=== PATIENT | male | born 1935 | race Caucasian/White ===

== ENCOUNTER 2016-06-11 14:05 | Inpatient (IN) | payer MEDICARE, BC ==
[~2016-06-11] VITALS: Ht 152.4 cm; Wt 97.5 kg
[2016-06-11] VITALS (9 sets, daily range): BP systolic 101–160; BP diastolic 61–103
[2016-06-11] MEDS ORDERED: IV NS 0.9% 1,000 ML BAG IV ONE (14:30)
[2016-06-11] MEDS ORDERED: DILTIAZEM HCL 25 MG IV IV ONE (14:30)
[2016-06-11] MEDS ORDERED: BUME2TAB3 PO (14:31)
[2016-06-11] MEDS ORDERED: TAMS-12 PO (14:31)
[2016-06-11] MEDS ORDERED: FURO40TA5 PO (14:31)
[2016-06-11] MEDS ORDERED: CELE200C PO (14:31)
[2016-06-11] MEDS ORDERED: LEVO137T2 PO (14:31)
[2016-06-11] MEDS ORDERED: FINA5TAB11 PO (14:31)
[2016-06-11] MEDS ORDERED: IV SET PRIMARY 1 EA INFUS.SET MC ONE (14:32)
[2016-06-11] MEDS ORDERED: IV NS 0.9% 250 ML IV ONE (14:32)
[2016-06-11] MEDS ORDERED: DILTIAZEM HCL 25 MG IV ONE (14:32)
[2016-06-11 14:36] LABS: BASOPHILS % (AUTO) 0.2 % (0.0-2.0); DIFF TOTAL % 100 %; EOSINOPHILS # (AUTO) 0.1 /CMM (0.0-0.7); EOSINOPHILS % (AUTO) 1.8 % (0.0-6.0); HEMATOCRIT 45 % (39-51); LYMPHOCYTES # (AUTO) 1.4 /CMM (0.8-4.8); LYMPHOCYTES % (AUTO) 19.3 % (20.0-44.0); MEAN CORPUSCULAR HEMOGLOBIN 31 PG (26.0-33.0); MEAN CORPUSCULAR HGB CONC 33 g/dl (31.0-36.0); MEAN CORPUSCULAR VOLUME 93 fL (80-96); MONOCYTES # (AUTO) 0.5 /CMM (0.1-1.30); MONOCYTES % (AUTO) 7.1 % (2.0-12.0); NEUTROPHILS # (AUTO) 5.3 /CMM (1.8-8.9); NEUTROPHILS % (AUTO) 71.6 % (43.0-81.0); PLATELET COUNT (AUTO) 301 /CMM (150-450); RED BLOOD CELL COUNT(AUTO) 4.89 MIL/uL (4.5-6.0); WHITE BLOOD COUNT (AUTO) 7.3 K/uL (4.3-11.0)
[2016-06-11] MEDS ORDERED: DILTIAZEM HCL 30 MG TABLET ONE (14:42)
[2016-06-11 14:47] LABS: ANION GAP 13 (5-14); CALCIUM, SERUM 8.9 mg/dL (8.5-10.1); CARBON DIOXIDE 29 mmol/L (21-32); CHLORIDE 106 mmol/L (98-107); CREATININE 1.2 mg/dL (0.6-1.3); GLUCOSE 120 mg/dL (74-106); POTASSIUM 4.9 mmol/L (3.5-5.1); SODIUM SERUM 143 mmol/L (136-145); UREA NITROGEN, BLOOD 16 mg/dL (7-18)
[2016-06-11 14:49] LABS: PROTHROMBIN TIME 10.5 SECS (9.5-12.7)
[2016-06-11 14:58] LABS: ALANINE AMINOTRANSFERASE 18 U/L (12-78); ALBUMIN 3.4 g/dL (3.4-5.0); ASPARTATE AMINOTRANSFERASE 19 U/L (15-37); BILIRUBIN,DIRECT 0.2 mg/dL (0.0-0.2); BILIRUBIN,TOTAL 0.9 mg/dL (0.2-1.0); INDIRECT BILIRUBIN 0.7 mg/dL (0.0-1.1); TOTAL PROTEIN, SERUM 8.1 g/dL (6.4-8.2)
[2016-06-11 14:59] LABS: TROPONIN I < 0.017 ng/mL (0.00-0.056)
[2016-06-11] MEDS ORDERED: DILTIAZEM HCL IV 125 MG in IV D5W 100 ML IV PRN (15:30)
[2016-06-11] MEDS ORDERED: IV SET PRIMARY PUMP SET 1 EA INFUS.SET MC ONE (15:58)
[2016-06-11] MEDS ORDERED: DILTIAZEM HCL 30 MG TABLET PO ONE (16:30)
[2016-06-11] MEDS ORDERED: ACETAMINOPHEN 650 MG/SUPP.RECT RC PRN (18:30)
[2016-06-11] MEDS ORDERED: ZOLPIDEM TARTRATE 5 MG TABLET PO PRN (19:00)
[2016-06-11] MEDS ORDERED: LORAZEPAM 1 MG TABLET PO PRN (19:00)
[2016-06-11] MEDS ORDERED: DOCUSATE SODIUM 100 MG CAPSULE PO PRN (19:00)
[2016-06-11] MEDS ORDERED: MORPHINE SULFATE INJ 2 MG/ML DISP.SYRIN IV PRN ×2 (19:00)
[2016-06-11] MEDS ORDERED: ONDANSETRON HCL/PF 4 MG/2 ML VIAL IVP PRN (19:00)
[2016-06-11] MEDS ORDERED: ACETAMINOPHEN 325 MG TABLET PO PRN (19:00)
[2016-06-11] MEDS ORDERED: NITROGLYCERIN 0.4 MG/TAB BOTTLE SL PRN (19:00)
[2016-06-11] MEDS: IV NS 0.9% 1,000 ML IV PRN (19:08)
[2016-06-11] MEDS: AMIODARONE HCL 200 MG TABLET PO SCH (19:12)
[2016-06-11] MEDS: ENOXAPARIN SODIUM 100 MG/ML DISP.SYRIN SQ SCH (21:00)
[2016-06-11] MEDS ORDERED: METOPROLOL TARTRATE 25 MG TABLET PO SCH (21:00)
[2016-06-11] MEDS ORDERED: SIMVASTATIN 20 MG TABLET PO SCH (22:00)
[2016-06-12] VITALS: BP 130/67
[2016-06-12 01:00] VITALS: BP 126/63
[2016-06-12 04:50] VITALS: BP 133/65
[2016-06-12 05:06] LABS: BASOPHILS % (AUTO) 0.2 % (0.0-2.0); DIFF TOTAL % 100 %; EOSINOPHILS # (AUTO) 0.2 /CMM (0.0-0.7); EOSINOPHILS % (AUTO) 2.8 % (0.0-6.0); HEMATOCRIT 37 % (39-51); HEMOGLOBIN 12.5 g/dL (13.5-17.5); LYMPHOCYTES # (AUTO) 1.3 /CMM (0.8-4.8); LYMPHOCYTES % (AUTO) 16.6 % (20.0-44.0); MEAN CORPUSCULAR HEMOGLOBIN 31 PG (26.0-33.0); MEAN CORPUSCULAR HGB CONC 33 g/dl (31.0-36.0); MEAN CORPUSCULAR VOLUME 93 fL (80-96); MONOCYTES # (AUTO) 0.8 /CMM (0.1-1.30); MONOCYTES % (AUTO) 10.9 % (2.0-12.0); NEUTROPHILS # (AUTO) 5.4 /CMM (1.8-8.9); NEUTROPHILS % (AUTO) 69.5 % (43.0-81.0); PLATELET COUNT (AUTO) 273 /CMM (150-450); RED BLOOD CELL COUNT(AUTO) 4.01 MIL/uL (4.5-6.0); WHITE BLOOD COUNT (AUTO) 7.7 K/uL (4.3-11.0)
[2016-06-12 05:22] LABS: AMYLASE 66 U/L (25-115); CALCIUM, SERUM 8.3 mg/dL (8.5-10.1); CREATININE 0.9 mg/dL (0.6-1.3); PHOSPHORUS 3.3 mg/dL (2.5-4.9); POTASSIUM 3.6 mmol/L (3.5-5.1)
[2016-06-12 05:25] LABS: INR 1.02 (0.87-1.13)
[2016-06-12 05:27] LABS: CHOLESTEROL 147 mg/dL (<200); HDL CHOLESTEROL 53 mg/dL (40-60); LDL 76 mg/dL (0-99); TRIGLYCERIDES 70 mg/dL (30-150)
[2016-06-12] MEDS: IV NS 0.9% 1,000 ML IV PRN (06:01)
[2016-06-12] MEDS ORDERED: PANTOPRAZOLE 40 MG TABLET.DR PO SCH (07:30)
[2016-06-12] MEDS ORDERED: LEVOTHYROXINE SODIUM 150 MCG TABLET PO SCH (07:30)
[2016-06-12 08:24] VITALS: BP 159/72
[2016-06-12] MEDS ORDERED: FUROSEMIDE 40 MG TABLET PO SCH (09:00)
[2016-06-12] MEDS ORDERED: ASPIRIN 81 MG TAB.CHEW PO SCH (09:00)
[2016-06-12] MEDS ORDERED: TAMSULOSIN 0.4 MG CAP.SR.24H PO SCH (09:00)
[2016-06-12] MEDS ORDERED: FINASTERIDE (5 MG) 5 MG TABLET PO SCH (09:00)
[2016-06-12] MEDS: ENOXAPARIN SODIUM 100 MG/ML DISP.SYRIN SQ SCH (09:00)
[2016-06-12 09:53] VITALS: BP 159/62
[2016-06-12] MEDS ORDERED: LEVOTHYROXINE SODIUM 75 MCG TABLET PO SCH (09:53)
[2016-06-12] MEDS: AMIODARONE HCL 200 MG TABLET PO SCH (09:53)
[2016-06-12 10:03] LABS: TROPONIN I 0.126 ng/mL (0.00-0.056)
== END 2016-06-12 12:30 | disposition left against medical advice (07) | DRG 308 ==
LOC: ER 14:07 → ICU 16:49
PROVIDERS: ADMIT Internal Medicine; ATTEND Internal Medicine
DX: I49.5 Sick sinus syndrome (principal); I50.23 Acute on chronic systolic (congestive) heart failure; D68.59 Other primary thrombophilia; I48.0 Paroxysmal atrial fibrillation; R55 Syncope and collapse; E03.9 Hypothyroidism, unspecified; E78.5 Hyperlipidemia, unspecified; E86.0 Dehydration; I11.0 Hypertensive heart disease with heart failure; Z96.642 Presence of left artificial hip joint; Z87.891 Personal history of nicotine dependence; Z91.19 Patient's noncompliance with other medical treatment and regimen
CPT/HCPCS: 36415; 71010-TC; 80048-TC; 80061-TC; 80076-TC; 82150-TC; 83690-TC; 83735-TC; 83880; 84100-TC; 84439-TC; 84443-TC; 84484-TC; 85025-TC; 85610-TC; 85730-TC; 87081-TC; 93307-TC; A4606; J3490; J7030; J7050; J7060; Z7610

== ENCOUNTER 2021-07-17 12:39 | Inpatient (IN) | payer BC, OTHER ==
[~2021-07-17] VITALS: Ht 177.8 cm; Wt 71.2 kg
[~2021-07-17 12:39] MED LIST: BUME2TAB7 PO; CELE200C PO; FINA5TAB11 PO; FURO40TA5 PO; LEVO137T2 PO; TAMS-12 PO
--- NOTE | 2021-07-17 12:48 | NUR ---
TO ER BED 8, [id number] FRM 4 SEASONS FOR NOTED HYPOTENSION, SYSTOLIC B/P 70'S GIVEN APPROX 300CC NS SOLE ROUNDING MACHINE OPERATOR. AAOX2, BREATHING EVEN AND NON LABORED, CONNECTED TO MONITOR, PROVIDED WARM BLANKET, AWAITING MD KANG
[2021-07-17] MEDS ORDERED: IV LR 1000 ML 1,000 ML IV ONE (13:00)
--- NOTE | 2021-07-17 13:20 | NUR ---
X RAY AT BEDSIDE
--- NOTE | 2021-07-17 13:39 | NUR ---
COVID TEST COLLECTED AND SENT
--- NOTE | 2021-07-17 13:40 | NUR ---
URINE COLLECTED AND SENT TO LAB
--- NOTE | 2021-07-17 13:45 | NUR ---
COVID SWABS DONE AND SENT TO LAB
[2021-07-17 14:00] LABS: BASOPHILS % (AUTO) 0.3 % (0.0-2.0); EOSINOPHILS % (AUTO) 0.5 % (0.0-6.0); HEMATOCRIT 36 % (39-51); HEMOGLOBIN 11.3 g/dL (13.5-17.5); LYMPHOCYTES # (AUTO) 1.8 K/uL (0.8-4.8); LYMPHOCYTES % (AUTO) 18.4 % (20.0-44.0); MEAN CORPUSCULAR HGB CONC 32 g/dl (31.0-36.0); MEAN CORPUSCULAR VOLUME 92 fL (80-96); MONOCYTES # (AUTO) 0.9 K/uL (0.1-1.30); MONOCYTES % (AUTO) 8.7 % (2.0-12.0); NEUTROPHILS # (AUTO) 7.2 K/uL (1.8-8.9); NEUTROPHILS % (AUTO) 72.1 % (43.0-81.0); PLATELET COUNT (AUTO) 288 K/uL (150-450); RED BLOOD CELL COUNT(AUTO) 3.88 MIL/uL (4.5-6.0)
--- NOTE | 2021-07-17 14:30 | NUR ---
URINE RECOLLECTED AND RESENT.
[2021-07-17 14:44] LABS: CALCIUM, SERUM 8.3 mg/dL (8.5-10.1); CARBON DIOXIDE 28 mmol/L (21-32); CHLORIDE 104 mmol/L (98-107); CREATININE 2.1 mg/dL (0.6-1.3); GLUCOSE 107 mg/dL (74-106); POTASSIUM 4.4 mmol/L (3.5-5.1); SODIUM SERUM 138 mmol/L (136-145); UREA NITROGEN, BLOOD 31 mg/dL (7-18)
--- NOTE | 2021-07-17 14:54 | NUR ---
MOVE SHEET SUBMITTED.
[2021-07-17 15:32] LABS: BILIRUBIN,DIRECT 0.4 mg/dL (0.0-0.2); BILIRUBIN,TOTAL 0.9 mg/dL (0.2-1.0)
[2021-07-17 15:33] LABS: BILIRUBIN,URINE MODERATE (NEGATIVE); COLOR,URINE YELLOW (YELLOW); LEUKOCYTE ESTERASE ,URINE MODERATE (NEGATIVE); NITRITE, URINE NEGATIVE (NEGATIVE); PH,URINE 7.5 (5.0-8.0); PROTEIN,URINE 100 mg/dl (NEGATIVE); UGLUCOSE NEGATIVE (NEGATIVE)
[2021-07-17 15:33] LABS: ALANINE AMINOTRANSFERASE 24 U/L (12-78); ALBUMIN 1.7 g/dL (3.4-5.0); ALKALINE PHOSPHATASE 136 U/L (46-116); ASPARTATE AMINOTRANSFERASE 36 U/L (15-37); TOTAL PROTEIN, SERUM 7.2 g/dL (6.4-8.2)
--- NOTE | 2021-07-17 15:40 | NUR ---
[facility] CALLED GROUP RESERVATIONS COORDINATOR PAGED.
[2021-07-17 15:48] LABS: WBC,URINE TOO NUMEROUS TO COUN /HPF (0-3)
[2021-07-17 15:49] LABS: BACTERIA,URINE Moderate /HPF (None Seen); SQUAMOUS EPITHELIAL CELL,UR Rare /HPF (None Seen)
[2021-07-17] MEDS ORDERED: CEFTAZIDIME 1 G in IV D5W 50 ML IV ONE (16:00)
[2021-07-17] MEDS ORDERED: ACETAMINOPHEN 325 MG TABLET PO PRN (17:00)
[2021-07-17] MEDS ORDERED: Z GUARD REMEDY 4 OZ OINT TP PRN (17:00)
[2021-07-17] MEDS ORDERED: IV NS 0.9% 1,000 ML IV PRN (17:00)
[2021-07-17] MEDS ORDERED: ONDANSETRON HCL/PF 4 MG/2 ML VIAL IVP PRN (17:00)
[2021-07-17] MEDS ORDERED: ZINC50TA69 PO (18:01)
[2021-07-17] MEDS ORDERED: AMIO200T5 PO (18:01)
[2021-07-17] MEDS ORDERED: SENN-261 PO (18:01)
[2021-07-17] MEDS ORDERED: INSU100V11 SQ (18:01)
[2021-07-17] MEDS ORDERED: HYDR-4076 PO (18:01)
[2021-07-17] MEDS ORDERED: HYDR-4209 PO (18:01)
[2021-07-17] MEDS ORDERED: LEVO125T8 PO (18:01)
[2021-07-17] MEDS ORDERED: AMIN30LI2 PO (18:01)
[2021-07-17] MEDS ORDERED: ESCI5TAB PO (18:01)
[2021-07-17] MEDS ORDERED: MULT-447 PO (18:01)
[2021-07-17] MEDS ORDERED: VITA1TAB56 PO (18:01)
[2021-07-17] MEDS ORDERED: HEPA50007 SQ (18:01)
[2021-07-17] MEDS ORDERED: HYDR-4303 PO (18:01)
[2021-07-17] MEDS ORDERED: MAGN400O6 PO (18:01)
[2021-07-17] MEDS ORDERED: ASCO-340 PO (18:01)
[2021-07-17] MEDS ORDERED: AMLO-212 PO (18:01)
[2021-07-17] MEDS ORDERED: LISI-768 PO (18:01)
[2021-07-17] MEDS ORDERED: BISA10SU11 RC (18:01)
[2021-07-17] MEDS ORDERED: LORA-259 PO (18:01)
[2021-07-17] MEDS ORDERED: FERR325T23 PO (18:01)
[2021-07-17] MEDS ORDERED: SITA50TA PO (18:01)
[2021-07-17] MEDS ORDERED: GABA-532 PO (18:01)
[2021-07-17] MEDS ORDERED: ACET-868 PO (18:01)
[2021-07-17] MEDS ORDERED: NA P133E RC (18:01)
[2021-07-17] MEDS ORDERED: LIDO30AD10 TP (18:01)
[2021-07-17] MEDS ORDERED: CARV3.122 PO (18:01)
[2021-07-17] MEDS: CEFTRIAXONE 1 G in IV D5W 50 ML IV SCH (18:03)
[2021-07-17] MEDS: AZITHROMYCIN 500 MG in IV D5W 250 ML IV SCH (20:43)
[2021-07-17] MEDS ORDERED: HEPARIN SODIUM, PORCINE 5000 UNITS/1 ML VIAL ONE (21:09)
[2021-07-17] MEDS: HEPARIN SODIUM, PORCINE 5000 UNITS/1 ML VIAL SQ SCH (21:11)
--- NOTE | 2021-07-17 22:06 | NUR ---
ROOM 313-2
--- NOTE | 2021-07-17 23:16 | NUR ---
REPORT GIVEN TO ENZO PRAJAPATI
--- NOTE | 2021-07-18 00:24 | NUR ---
PT TRANSFERRED TO 113-2 VIA ACLS PROTOCOL. VSS
[2021-07-18 00:35] VITALS: BP 100/60
--- NOTE | 2021-07-18 00:35 | NUR ---
FURNACE ATTENDANT NOTES PT ARRIVED TI UNIT VIA ROBYNRDARIELA ACCOMPANIED BY RN AND EMT PT IS A 86 YEAR OLD MALE A/O X3. T IN NO NOTED RESPIRATORY DISTRESS ON ROOM AIR TOLERATING WELL.NO PAIN AT THIS TIME. PT UNABLE TO AMBULATE NOTED WITH BILATERAL LOWER EXTREMITY WOUNDS PICTURES TAKEN AND PLACED IN CHART PT NOTED WITH NO BELONGINGS WITH HIM. PT NOTE WITH IV ACCESS ON THE L WRIST 22G AND RIGHT HAND 20 G PATENT INTACT FLUSHING WELL. PT ON NS @ 75 ML/HR RUNNING WELL. PT PLACED ON TELE MONITOR READING ST 100'S. PT ORIENTED TO ROOM AND UNIT. CALL LIGHT PLACED WITHIN REACH. CLARIFIED WITH DR SALAZAR PT TO REMAIN FULL CODE AT THIS TIME. WILL CONTINUE TO MONITOR.
[2021-07-18 00:45] VITALS: BP 100/60
[2021-07-18 04:00] VITALS: BP 69/41
--- NOTE | 2021-07-18 05:06 | NUR ---
TRAVELING CLERK NOTES NOTED PT SBP WAS 41/37 CALLED THE ACCOUNT RECEIVABLE CLERK DR PT IS ALERT X4 NO DISTRESS NOTED AT THIS TIME.
--- NOTE | 2021-07-18 05:20 | NUR ---
FURNITURE UPHOLSTERER NOTES UNABLE TO GET IN CONTACT WITH EASEMENT MAN DOCTOR CHARGE NURSE CALLED A RAPID RESPONSE. ER NURSE ARRIVED TO SCENE WITH EMT RT' S PRESENT CHARGE NURSE, NURSING COMMERCIAL LIGHT FIXTURE ASSEMBLER PRESENT. PT ALL OTHER VITAL SIGNS WITHIN NORMAL LIMITS EXCEPT SBP 41/37 THE BOLUS WAS GIVEN PTS SBP STARTED RISING 62/57 REASSESSED BP NOW ITS 72/57 REASSESSED AGAIN PT SBP STARTED TRENDING DOWN AGAIN 52/76. WILL PAGE MD AGAIN.
[2021-07-18 05:47] VITALS: BP 47/57
[2021-07-18] MEDS ORDERED: IV NS 0.9% 1,000 ML IV ONE (06:00)
[2021-07-18] MEDS ORDERED: MIDODRINE HCL (5MG) 5 MG TABLET PO PRN (06:00)
--- NOTE | 2021-07-18 06:48 | NUR ---
TELEL RN NOTES MD CALLED BACK RECEIVED ORDERS FOR MIDODRINE 10 MG Q8HR PRN FOR SBP< 90, 1L OF NS BOLUS, THEN START PT IV FLUIDS AT @ 100 ML/HR ORDERS NOTED AND CARRIED OUT. WILL ADMINISTER NOW. REITERATED TO PT STATED AND WITNESSED BY TWO RNS HE WOULD LIKE TO BE DNR AWARE NO NEW ORDERS AT THIA TIME.
--- NOTE | 2021-07-18 07:20 | NUR ---
MAINTENANCE OF WAY SUPERVISOR NOTES PT A/O X3. ON ROOM AIR TOLERATING WELL, WITH NO SIGNS OF DISTRESS. NO PAIN AT THIS TIME. PT NOTE WITH IV ACCESS ON THE L WRIST 22G AND RIGHT HAND 20 G PATENT INTACT FLUSHING WELL. PT ON NS @ 75 ML/HR RUNNING WELL. PT PLACED ON TELE MONITOR READING ST 100'S. CALL LIGHT PLACED WITHIN REACH. WITH ONGOING BOLUS ORDERED. WILL CONTINUE TO MONITOR PATIENT.
[2021-07-18] MEDS ORDERED: LEVOTHYROXINE SODIUM 137 MCG TABLET PO SCH (07:30)
[2021-07-18 08:00] VITALS: BP 61/41
[2021-07-18 08:19] LABS: BILIRUBIN,TOTAL 0.4 mg/dL (0.2-1.0); CALCIUM, SERUM 7.2 mg/dL (8.5-10.1); CREATININE 1.3 mg/dL (0.6-1.3); MAGNESIUM 1.7 mg/dL (1.8-2.4); PHOSPHORUS 3.9 mg/dL (2.5-4.9); POTASSIUM 4.1 mmol/L (3.5-5.1); TOTAL PROTEIN, SERUM 5.8 g/dL (6.4-8.2)
[2021-07-18 08:27] LABS: THYROID STIMULATING HORMONE 72.42 uIU/mL (0.358-3.74)
--- NOTE | 2021-07-18 08:30 | NUR ---
TOP INVENTORY CONTROL EXECUTIVE NOTE PATIENT IV ACCESS INFILTRATED. REMOVED AND COVERED WITH DRY DRESSING. DRY AND INTACT. TOLERATED WELL.
[2021-07-18 09:11] LABS: ALBUMIN 1.2 g/dL (3.4-5.0)
[2021-07-18] MEDS: FAMOTIDINE (20 MG) 20 MG TABLET PO SCH (09:29)
[2021-07-18] MEDS: FINASTERIDE (5 MG) 5 MG TABLET PO SCH (09:29)
[2021-07-18] MEDS: TAMSULOSIN 0.4 MG CAP.SR.24H PO SCH (09:29)
--- NOTE | 2021-07-18 09:30 | NUR ---
RN NOTE PATIENT WITH ALBUMIN LEVEL OF 1.2 RELAYED BY LAB. SEEN BY ABBY ALAS. WILL CONTINUE TO MONITOR PATIENT. Addendum: 07/18/21 at 1832 by MARTI TONEY RN UPDATED OF PATIENT'S LATEST CONDITION. TO INFUSE 500ML MORE OF FLUID. IV INFILTRATED. WILL ORDER MIDLINE INSERTION BECAUSE OF UNSUCCESSFUL ATTEMPTS ON IV INSERTION. WILL CONTINUE TO MONITOR PATIENT.
[2021-07-18 09:47] LABS: BASOPHILS % (AUTO) 0.4 % (0.0-2.0); EOSINOPHILS % (AUTO) 0.7 % (0.0-6.0); HEMATOCRIT 30 % (39-51); HEMOGLOBIN 9.7 g/dL (13.5-17.5); LYMPHOCYTES # (AUTO) 1.8 K/uL (0.8-4.8); LYMPHOCYTES % (AUTO) 21.9 % (20.0-44.0); MEAN CORPUSCULAR HGB CONC 33 g/dl (31.0-36.0); MEAN CORPUSCULAR VOLUME 91 fL (80-96); MONOCYTES # (AUTO) 0.7 K/uL (0.1-1.30); MONOCYTES % (AUTO) 8.1 % (2.0-12.0); NEUTROPHILS # (AUTO) 5.7 K/uL (1.8-8.9); NEUTROPHILS % (AUTO) 68.9 % (43.0-81.0); PLATELET COUNT (AUTO) 269 K/uL (150-450); RED BLOOD CELL COUNT(AUTO) 3.29 MIL/uL (4.5-6.0); WHITE BLOOD COUNT (AUTO) 8.3 K/uL (4.3-11.0)
[2021-07-18] MEDS: HEPARIN SODIUM, PORCINE 5000 UNITS/1 ML VIAL SQ SCH ×2 (09:47→21:28)
--- NOTE | 2021-07-18 14:00 | NUR ---
LAWN MOWER MECHANIC NOTE PATIENT MIDLINE INSERTED AND REGULATED FLUIDS. WILL CONTINUE TO [place] PATIENT. NO SIGNS AND SYMOPTOMS OF HYPOTENSION NOTED.
--- NOTE | 2021-07-18 17:39 | NUR ---
RN NOTE PATIENT WITH ADVANCE DIRECTIVE/POLST ATTACHED TO CHART. MD NOTIFIED WITH ORDERS MADE AND VERIFIED.
[2021-07-18] MEDS: DAKINS QUARTER STRENGTH (0.125%) 480 ML BOTTLE TOP SCH (17:42)
[2021-07-18] MEDS: CEFTRIAXONE 1 G in IV D5W 50 ML IV SCH (17:45)
[2021-07-18] MEDS: IV NS 0.9% 1,000 ML IV PRN (18:21)
--- NOTE | 2021-07-18 19:10 | NUR ---
MS RN NOTES PT A/O X3. ON ROOM AIR TOLERATING WELL, WITH NO SIGNS OF DISTRESS. NO PAIN AT THIS TIME. PT NOTE WITH MIDLINE ON RIGHT UPPER ARM, FLUSHING WELL. PT ON NS @ 100 ML/HR RUNNING WELL. CALL LIGHT PLACED WITHIN REACH. WITH ONGOING BOLUS ORDERED. WILL ENDORSE PATIENT FOR CONTINUITY OF CARE.
--- NOTE | 2021-07-18 19:26 | NUR ---
MS RN OPENING NOTES RECEIVED PATIENT IN BED AWAKE, ALERT AND ORIENTED X3. NO S/SX OF ACUTE RESPIRATORY DISTRESS NOTED. NO SOB NOTED. ON ROOM AIR TOLERATING WELL. DENIES PAIN OR DISCOMFORT AT THIS TIME. IV ACCESS ON RIGHT UPPER ARM MIDLINE, PATENT AND INTACT. NS @ 100ML/HR RUNNING WELL. ON MCLAUGHLIN CATHETER DRAINING WELL WITH JOSUE YELLOW URINE. SAFETY MEASURES IN PLACE. CALL LIGHT WITHIN REACH. WILL CONTINUE TO MONITOR THROUGHOUT THE SHIFT.
[2021-07-18 20:00] VITALS: BP 109/57
[2021-07-18] MEDS: AZITHROMYCIN 500 MG in IV D5W 250 ML IV SCH (20:08)
[2021-07-18] MEDS: MUPIROCIN OINT 2% 22 GM TUBE NS SCH (21:22)
--- NOTE | 2021-07-19 06:27 | NUR ---
MS RN CLOSING NOTES PATIENT IN BED AWAKE, ALERT AND ORIENTED X3. NO S/SX OF ACUTE RESPIRATORY DISTRESS NOTED. NO SOB NOTED. ON ROOM AIR TOLERATING WELL. DENIES PAIN OR DISCOMFORT AT THIS TIME. IV ACCESS ON RIGHT UPPER ARM MIDLINE, PATENT AND INTACT. NS @ 100ML/HR INFUSING WELL. ON MCL[place]GHLIN CATHETER DRAINING WELL WITH JOSUE YELLOW URINE. TURNED AND REPOSITIONED Q2H PER PROTOCOL. SAFETY MEASURES IN PLACE. CALL LIGHT WITHIN REACH. WILL ENDORSE TO ONCOMING SHIFT.
[2021-07-19] MEDS: LEVOTHYROXINE SODIUM 75 MCG TABLET PO SCH (07:30)
--- NOTE | 2021-07-19 07:30 | NUR ---
MS RN OPENING NOTES RECEIVED PATIENT ON BED AWAKE AND A/O X3. ON ROOM AIR TOLERATING WELL. NO SOB NOTED. NOT IN DISTRESS. WITH NO COMPLAINTS OF PAIN OR DISCOMFORT AT THIS TIME. WITH IV ACCESS AT RIGHT UPPER ARM MIDLINE WITH IVF NS AT 100ML/HR INFUSING WELL. SAFETY MEASURES IN PLACED. CALL LIGHT WITHIN REACH. BED ON LOWEST LOCKED POSITION, SIDE RAILS UP X2. WILL CONTINUE TO MONITOR.
[2021-07-19 07:41] LABS: BASOPHILS % (AUTO) 0.5 % (0.0-2.0); EOSINOPHILS % (AUTO) 1.4 % (0.0-6.0); HEMATOCRIT 26 % (39-51); HEMOGLOBIN 8.3 g/dL (13.5-17.5); LYMPHOCYTES # (AUTO) 1.4 K/uL (0.8-4.8); LYMPHOCYTES % (AUTO) 22.2 % (20.0-44.0); MAGNESIUM 1.4 mg/dL (1.8-2.4); MEAN CORPUSCULAR HGB CONC 31 g/dl (31.0-36.0); MEAN CORPUSCULAR VOLUME 96 fL (80-96); MONOCYTES # (AUTO) 0.6 K/uL (0.1-1.30); MONOCYTES % (AUTO) 9.2 % (2.0-12.0); NEUTROPHILS # (AUTO) 4.2 K/uL (1.8-8.9); NEUTROPHILS % (AUTO) 66.7 % (43.0-81.0); PHOSPHORUS 2.7 mg/dL (2.5-4.9); PLATELET COUNT (AUTO) 153 K/uL (150-450); POTASSIUM 3.4 mmol/L (3.5-5.1); RED BLOOD CELL COUNT(AUTO) 2.74 MIL/uL (4.5-6.0); WHITE BLOOD COUNT (AUTO) 6.3 K/uL (4.3-11.0)
[2021-07-19 07:55] LABS: CALCIUM, SERUM 7.2 mg/dL (8.5-10.1)
[2021-07-19 08:33] VITALS: BP 111/55
[2021-07-19] MEDS: HEPARIN SODIUM, PORCINE 5000 UNITS/1 ML VIAL SQ SCH ×2 (09:00→21:57)
[2021-07-19] MEDS: FINASTERIDE (5 MG) 5 MG TABLET PO SCH (09:21)
[2021-07-19] MEDS: FAMOTIDINE (20 MG) 20 MG TABLET PO SCH (09:21)
[2021-07-19] MEDS: TAMSULOSIN 0.4 MG CAP.SR.24H PO SCH (09:22)
[2021-07-19] MEDS: DAKINS QUARTER STRENGTH (0.125%) 480 ML BOTTLE TOP SCH (09:23)
[2021-07-19] MEDS: MUPIROCIN OINT 2% 22 GM TUBE NS SCH ×2 (09:27→21:54)
[2021-07-19] MEDS ORDERED: POTASSIUM CHLORIDE 20 MEQ TAB.PRT.SR PO SCH (10:00)
[2021-07-19] MEDS: MAGNESIUM OXIDE 400 MG TABLET PO SCH ×2 (11:22→12:05)
[2021-07-19] MEDS ORDERED: LIDOCAINE 0.5%-EPI 1:200,000 50 ML VIAL TP ONE (15:00)
[2021-07-19] MEDS ORDERED: SILVER NITRATE APPLICATOR 1 EA BOX TP SCH (15:00)
[2021-07-19 16:31] VITALS: BP 127/64
[2021-07-19] MEDS: CEFTRIAXONE 1 G in IV D5W 50 ML IV SCH (17:24)
[2021-07-19] MEDS: IV NS 0.9% 1,000 ML IV PRN (17:56)
--- NOTE | 2021-07-19 18:45 | NUR ---
MS RN CLOSING NOTES PATIENT ON BED AWAKE AND A/O X3. ON ROOM AIR TOLERATING WELL. NO SOB NOTED. NOT IN DISTRESS. WITH NO COMPLAINTS OF PAIN OR DISCOMFORT AT THIS TIME. WITH IV ACCESS AT RIGHT UPPER ARM MIDLINE WITH IVF NS AT 100ML/HR INFUSING WELL. DUE MEDS GIVEN. SAFETY MEASURES IN PLACED. CALL LIGHT WITHIN REACH. BED ON LOWEST LOCKED POSITION, SIDE RAILS UP X2. WILL ENDORSE TO NEXT SHIFT FOR CASIMIRO.
[2021-07-19 20:00] VITALS: BP 115/56
[2021-07-19] MEDS: AZITHROMYCIN 500 MG in IV D5W 250 ML IV SCH (20:00)
--- NOTE | 2021-07-19 20:00 | NUR ---
RECEIVED PATIENT IN BED, ALERT/ORIENTED X3, ROOM AIR, NO COMPLAIN OF PAIN, BEDREST, MCLAUGHLIN CATHETER DRAINING WELL, SACRAL WOUND, BP WNL, KEPT SAFE, WILL CONTINUE TO MONITOR.
[2021-07-19] MEDS: MEROPENEM 500 MG in IV NS 0.9% 50 ML IV SCH (21:53)
[2021-07-20] MEDS: MEROPENEM 500 MG in IV NS 0.9% 50 ML IV SCH ×3 (05:00→21:48)
--- NOTE | 2021-07-20 07:11 | NUR ---
ALERT/ORIENTED X3, ROOM AIR, DNR/DNI, NO COMPLAIN OF PAIN, MCLAUGHLIN CATHETER FOR URINARY RETENTION, SACRAL WOUND, CONTINUE MERREM, ROCEPHIN AND ZITHROMAX, ELIZABETH MIDLINE, MIDODRINE IF SBP < 90, HOLD OFF ANTIHYPERTENSIVES UNTIL BP GOES BACK TO BASELINE, NO MORE CARDIO WORK UP NEEDED. BP WNL DURING SHIFT.
[2021-07-20] MEDS: LEVOTHYROXINE SODIUM 75 MCG TABLET PO SCH (07:30)
[2021-07-20 07:36] LABS: BASOPHILS % (AUTO) 0.8 % (0.0-2.0); EOSINOPHILS % (AUTO) 1.9 % (0.0-6.0); HEMATOCRIT 25 % (39-51); HEMOGLOBIN 8.2 g/dL (13.5-17.5); LYMPHOCYTES # (AUTO) 1.6 K/uL (0.8-4.8); LYMPHOCYTES % (AUTO) 29.1 % (20.0-44.0); MEAN CORPUSCULAR HGB CONC 34 g/dl (31.0-36.0); MEAN CORPUSCULAR VOLUME 91 fL (80-96); MONOCYTES # (AUTO) 0.5 K/uL (0.1-1.30); MONOCYTES % (AUTO) 8.5 % (2.0-12.0); NEUTROPHILS # (AUTO) 3.3 K/uL (1.8-8.9); NEUTROPHILS % (AUTO) 59.7 % (43.0-81.0); PLATELET COUNT (AUTO) 211 K/uL (150-450); RED BLOOD CELL COUNT(AUTO) 2.72 MIL/uL (4.5-6.0); WHITE BLOOD COUNT (AUTO) 5.5 K/uL (4.3-11.0)
[2021-07-20] MEDS: IV NS 0.9% 1,000 ML IV PRN (07:38)
[2021-07-20 07:50] LABS: BILIRUBIN,TOTAL 0.2 mg/dL (0.2-1.0); CALCIUM, SERUM 7.4 mg/dL (8.5-10.1); CREATININE 0.8 mg/dL (0.6-1.3); MAGNESIUM 1.4 mg/dL (1.8-2.4); PHOSPHORUS 1.8 mg/dL (2.5-4.9); POTASSIUM 3.3 mmol/L (3.5-5.1)
--- NOTE | 2021-07-20 07:57 | NUR ---
RN OPENING NOTES PATIENT AWAKE IN BED RESTING, A/O X 3. NO S/S OF PAIN NOTED AT THIS TIME. PATIENT ON ROOM AIR NO DISTRESS OR SHORTNESS OF BREATH NOTED. IV ACCESS ELIZABETH MIDLINE, PATENT AND FLUSHING WELL. PATIENT HAVE A MCL[place]GHLIN CATHETER, IN PLACE, DRAINING WELL. FALL AND SAFETY MEASURES IN PLACE, BED ALARM ON, BED IN LOW AND LOCK POSITION, CALL LIGHT AND TABLE WITHIN EASY REACH, SIDE RAILS UP X2. WILL CONTINUE TO MONITOR.
[2021-07-20 08:00] LABS: ALBUMIN 1.4 g/dL (3.4-5.0)
--- NOTE | 2021-07-20 08:00 | NUR ---
RN NOTE PHARMACY CALLED, PATIENT HAVE ALBUMIN OF 1.4 TODAY, PREVIOUS ALBUMIN LEVEL FROM 07/18/21 WAS 1.2. CHARGE NURSE AWARE.
[2021-07-20 08:32] VITALS: BP 130/67
[2021-07-20] MEDS: DAKINS QUARTER STRENGTH (0.125%) 480 ML BOTTLE TOP SCH (08:47)
[2021-07-20] MEDS: Magnesium 1GM/D5W 100ML PREMIX 100 ML IV SCH ×4 (08:47→16:19)
[2021-07-20] MEDS: FAMOTIDINE (20 MG) 20 MG TABLET PO SCH (08:56)
[2021-07-20] MEDS: TAMSULOSIN 0.4 MG CAP.SR.24H PO SCH (08:56)
[2021-07-20] MEDS: FINASTERIDE (5 MG) 5 MG TABLET PO SCH (08:56)
[2021-07-20] MEDS: HEPARIN SODIUM, PORCINE 5000 UNITS/1 ML VIAL SQ SCH ×2 (08:57→20:40)
[2021-07-20] MEDS: MUPIROCIN OINT 2% 22 GM TUBE NS SCH ×2 (08:58→20:17)
[2021-07-20] MEDS ORDERED: POTASSIUM CHLORIDE 20 MEQ TAB.PRT.SR PO ONE (09:00)
[2021-07-20] MEDS ORDERED: K PHOS NEUTRAL 250 MG TABLET PO ONE (10:00)
--- NOTE | 2021-07-20 10:00 | NUR ---
RN NOTE PATIENT REFUSED TO TAKE MOST OF HIS AM MEDICATIONS ( LEVOTHYROXINE, HEPARIN, FAMOTIDINE, FINASTERIDE, TAMSULOSIN) PATIENT SAID HE DOSES NOT NEED THOSE MEDICATIONS. PATIENT TOOK THE POTASSIUM PILL. WILL CONTINUE TO MONITOR.
[2021-07-20 16:31] VITALS: BP 147/71
--- NOTE | 2021-07-20 16:45 | NUR ---
RN NOTE PATIENT REFUSED WOUND CARE TODAY, I TRIED SEVERAL TIMES AND AT DIFFERENT TIMES TO CHANGE WOUNDS DRESSINGS BUT PATIENT REFUSED EVERY TIME.
[2021-07-20] MEDS: CEFTRIAXONE 1 G in IV D5W 50 ML IV SCH (17:51)
--- NOTE | 2021-07-20 18:50 | NUR ---
RN CLOSING NOTES PATIENT AWAKE IN BED RESTING, A/O X 3. NO S/S OF PAIN NOTED AT THIS TIME. PATIENT ON ROOM AIR NO DISTRESS OR SHORTNESS OF BREATH NOTED. IV ACCESS ELIZABETH MIDLINE, PATENT AND FLUSHING WELL. PATIENT HAVE A MCL[place]GHLIN CATHETER, IN PLACE, DRAINING WELL, OUTPUT 700ML. FALL AND SAFETY MEASURES IN PLACE, BED ALARM ON, BED IN LOW AND LOCK POSITION, CALL LIGHT AND TABLE WITHIN EASY REACH, SIDE RAILS UP X2. WILL ENDORSE TO COKE INSPECTOR.
--- NOTE | 2021-07-20 19:20 | NUR ---
MS RN OPENING NOTES RECEIVED PATIENT IN BED AWAKE, ALERT AND ORIENTED X3. NO S/SX OF ACUTE RESPIRATORY DISTRESS NOTED. NO SOB NOTED. ON ROOM AIR TOLERATING WELL. DENIES PAIN OR DISCOMFORT AT THIS TIME. IV ACCESS ON RIGHT UPPER ARM MIDLINE, PATENT AND INTACT. NS @ 100ML/HR INFUSING WELL. PATIENT WITH MCLAUGHLIN CATHETER TO URINE BAG WITH JOSUE YELLOW URINE. SAFETY MEASURES IN PLACED. CALL LIGHT WITHIN REACH. WILL CONTINUE TO MONITOR PATIENT THROUGHOUT THE SHIFT.
[2021-07-20 20:00] VITALS: BP 137/69
[2021-07-20] MEDS: AZITHROMYCIN 500 MG in IV D5W 250 ML IV SCH (20:07)
[2021-07-21] MEDS: IV NS 0.9% 1,000 ML IV PRN ×2 (03:39→16:59)
[2021-07-21] MEDS: MEROPENEM 500 MG in IV NS 0.9% 50 ML IV SCH ×3 (04:10→20:41)
[2021-07-21 06:08] LABS: BASOPHILS % (AUTO) 0.7 % (0.0-2.0); EOSINOPHILS % (AUTO) 1.8 % (0.0-6.0); HEMATOCRIT 28 % (39-51); HEMOGLOBIN 9.1 g/dL (13.5-17.5); LYMPHOCYTES # (AUTO) 1.6 K/uL (0.8-4.8); LYMPHOCYTES % (AUTO) 30.9 % (20.0-44.0); MEAN CORPUSCULAR HGB CONC 33 g/dl (31.0-36.0); MEAN CORPUSCULAR VOLUME 91 fL (80-96); MONOCYTES # (AUTO) 0.4 K/uL (0.1-1.30); MONOCYTES % (AUTO) 7.3 % (2.0-12.0); NEUTROPHILS # (AUTO) 3.1 K/uL (1.8-8.9); NEUTROPHILS % (AUTO) 59.3 % (43.0-81.0); PLATELET COUNT (AUTO) 231 K/uL (150-450); RED BLOOD CELL COUNT(AUTO) 3.01 MIL/uL (4.5-6.0); WHITE BLOOD COUNT (AUTO) 5.2 K/uL (4.3-11.0)
[2021-07-21 06:38] LABS: CALCIUM, SERUM 7.7 mg/dL (8.5-10.1); CREATININE 0.7 mg/dL (0.6-1.3); MAGNESIUM 2.2 mg/dL (1.8-2.4); PHOSPHORUS 1.7 mg/dL (2.5-4.9); POTASSIUM 3.4 mmol/L (3.5-5.1)
--- NOTE | 2021-07-21 06:54 | NUR ---
MS RN CLOSING NOTES PATIENT IN BED AWAKE, ALERT AND ORIENTED X3. NO S/SX OF ACUTE RESPIRATORY DISTRESS NOTED. NO SOB NOTED. ON ROOM AIR TOLERATING WELL. DENIES PAIN OR DISCOMFORT AT THIS TIME. IV ACCESS ON RIGHT UPPER ARM MIDLINE, PATENT AND INTACT. NS @ 100ML/HR INFUSING WELL. PATIENT WITH MCLAUGHLIN CATHETER TO URINE BAG WITH JOSUE YELLOW URINE. SAFETY MEASURES IN PLACED. CALL LIGHT WITHIN REACH. WILL ENDORSE TO ONCOMING SHIFT.
[2021-07-21] MEDS: MUPIROCIN OINT 2% 22 GM TUBE NS SCH ×2 (08:16→20:42)
[2021-07-21] MEDS: TAMSULOSIN 0.4 MG CAP.SR.24H PO SCH (08:16)
[2021-07-21] MEDS: FAMOTIDINE (20 MG) 20 MG TABLET PO SCH (08:17)
[2021-07-21] MEDS: LEVOTHYROXINE SODIUM 75 MCG TABLET PO SCH (08:17)
[2021-07-21] MEDS: FINASTERIDE (5 MG) 5 MG TABLET PO SCH (08:17)
[2021-07-21] MEDS: HEPARIN SODIUM, PORCINE 5000 UNITS/1 ML VIAL SQ SCH ×3 (08:18→21:00)
[2021-07-21] MEDS: DAKINS QUARTER STRENGTH (0.125%) 480 ML BOTTLE TOP SCH (08:19)
[2021-07-21] MEDS ORDERED: POTASSIUM CHLORIDE 20 MEQ TAB.PRT.SR PO SCH (09:30)
[2021-07-21] MEDS: VANCOMYCIN 0.75 GM in IV D5W 250 ML IV SCH ×2 (11:28→23:18)
[2021-07-21] MEDS ORDERED: NEUTRA PHOS 1 POWD.PACKET PO ONE (12:30)
--- NOTE | 2021-07-21 18:45 | NUR ---
RN CLOSING NOTES PATIENT AWAKE IN BED RESTING, A/O X 3. NO S/S OF PAIN NOTED AT THIS TIME. PATIENT ON ROOM AIR NO DISTRESS OR SHORTNESS OF BREATH NOTED. IV ACCESS ELIZABETH MIDLINE, PATENT AND FLUSHING WELL. PATIENT HAVE A MCL[place]GHLIN CATHETER, IN PLACE, DRAINING WELL OUTPUT OF 1100 ML, YELLOW COLOR. FALL AND SAFETY MEASURES IN PLACE, BED ALARM ON, BED IN LOW AND LOCK POSITION, CALL LIGHT AND TABLE WITHIN EASY REACH, SIDE RAILS UP X2. WILL ENDORSE TO GLOVE TAGGER.
[2021-07-21 20:00] VITALS: BP 145/70
[2021-07-21] MEDS: AMIODARONE HCL 200 MG TABLET PO SCH (20:38)
[2021-07-22] MEDS: MEROPENEM 500 MG in IV NS 0.9% 50 ML IV SCH ×2 (05:19→12:12)
--- NOTE | 2021-07-22 06:30 | NUR ---
RN CLOSING NOTE PT IN STABLE CONDITION. WILL ENDORSE TO AM RN FOR CASIMIRO
--- NOTE | 2021-07-22 07:24 | NUR ---
MS RN OPENING NOTES RECEIVED PATIENT IN BED AWAKE, A/O X 3. NO COMPLAINTS PAIN NOTED AT THIS TIME. PATIENT ON ROOM AIR NO DISTRESS OR SHORTNESS OF BREATH NOTED. IV ACCESS ELIZABETH MIDLINE, PATENT AND FLUSHING WELL. NOTED WITH MCL[place]GHLIN CATHETER, IN PLACE, DRAINING WELL. FALL AND SAFETY MEASURES IN PLACE, BED ALARM ON, BED IN LOW AND LOCK POSITION, CALL LIGHT AND TABLE WITHIN EASY REACH, SIDE RAILS UP X2. WILL CONTINUE TO MONITOR ACCORDINGLY.
[2021-07-22] MEDS: LEVOTHYROXINE SODIUM 75 MCG TABLET PO SCH (07:33)
[2021-07-22 08:00] VITALS: BP 160/62
[2021-07-22] MEDS: TAMSULOSIN 0.4 MG CAP.SR.24H PO SCH (08:09)
[2021-07-22] MEDS: FINASTERIDE (5 MG) 5 MG TABLET PO SCH (08:09)
[2021-07-22] MEDS: FAMOTIDINE (20 MG) 20 MG TABLET PO SCH (08:09)
[2021-07-22] MEDS: AMIODARONE HCL 200 MG TABLET PO SCH (08:10)
[2021-07-22] MEDS: DAKINS QUARTER STRENGTH (0.125%) 480 ML BOTTLE TOP SCH (08:12)
[2021-07-22] MEDS: MUPIROCIN OINT 2% 22 GM TUBE NS SCH (08:16)
[2021-07-22] MEDS: HEPARIN SODIUM, PORCINE 5000 UNITS/1 ML VIAL SQ SCH (08:25)
[2021-07-22] MEDS: IV NS 0.9% 1,000 ML IV PRN (08:45)
[2021-07-22 08:53] VITALS: BP 160/62
[2021-07-22] MEDS: VANCOMYCIN 0.75 GM in IV D5W 250 ML IV SCH (10:48)
--- NOTE | 2021-07-22 14:00 | NUR ---
TEASELER NOTES DISCHARGE PATIENT IN STABLE CONDITION. VITAL SIGNS WITHIN NORMAL LIMITS. DISCHARGE INSTRUCTIONS AND FOLLOWUP DISCUSSED WITH FOUR SEASON'S RN. REPORT GIVEN TO RAMY GIRALDO. IV ACCESS REMOVED, COVERED WITH GAUZE, NO BLEEDING NOTED. BELONGINGS ACCOUNTED AND SIGNED FOR BY 2 RN, SINCE PATIENT IS UNABLE TYO SIGN. WILL BE DISCHARGED WITH MCLAUGHLIN CATHETER. SKIN ASSESSMENT DONE PRIOR TO DC. PICTURES FILED TO CHART. PATIENT WS PICKED UP BY 2 EMT FROM [facility]. LEFT UNIT IN STABLE CONDITION.
[2021-07-22] MEDS ORDERED: ENSURE ENLIVE 237 ML LIQUID (VANILLA) PO SCH (14:30)
[2021-07-22] MEDS ORDERED: MERO500V23 IV (15:54)
[2021-07-22] MEDS ORDERED: SODI473S8 TOP (15:54)
[2021-07-22] MEDS ORDERED: LEVO75TA PO (15:54)
[2021-07-22] MEDS ORDERED: MUPI22OI7 NS (15:54)
[2021-07-22] MEDS ORDERED: MIDO5TAB4 PO (15:54)
[2021-07-22] MEDS ORDERED: GABA-532 PO (15:54)
[2021-07-22] MEDS ORDERED: VANC750F2 IV (15:54)
[2021-07-22] MEDS ORDERED: AMLODIPINE BESYLATE 5 MG TABLET PO SCH (16:30)
== END 2021-07-22 16:10 | DRG 853 ==
LOC: ER 12:43 → TRANSITION 18:21 → TELE 22:15 → MED 07-18 15:41
PROVIDERS: ADMIT Hospitalist; ATTEND Hospitalist
PROC: 05H933Z Insertion of Infusion Device into Right Brachial Vein, Percutaneous Approach (ICD-10-PCS; 2021-07-18)
PROC: 0KBP0ZZ Excision of Left Hip Muscle, Open Approach (ICD-10-PCS; principal; 2021-07-19)
PROC: 0KBN0ZZ Excision of Right Hip Muscle, Open Approach (ICD-10-PCS; 2021-07-19)
DX: A41.9 Sepsis, unspecified organism (principal); L89.154 Pressure ulcer of sacral region, stage 4; G93.41 Metabolic encephalopathy; J18.9 Pneumonia, unspecified organism; N17.0 Acute kidney failure with tubular necrosis; E43 Unspecified severe protein-calorie malnutrition; I50.33 Acute on chronic diastolic (congestive) heart failure; N39.0 Urinary tract infection, site not specified; J98.11 Atelectasis; E87.2 Acidosis; Z20.822 Contact with and (suspected) exposure to COVID-19; I70.0 Atherosclerosis of aorta; I11.0 Hypertensive heart disease with heart failure; E78.5 Hyperlipidemia, unspecified; B96.20 Unspecified Escherichia coli [E. coli] as the cause of diseases classified elsewhere; E86.1 Hypovolemia; E03.9 Hypothyroidism, unspecified; I48.91 Unspecified atrial fibrillation; Z79.890 Hormone replacement therapy; Z79.899 Other long term (current) drug therapy; Z96.642 Presence of left artificial hip joint; E88.09 Other disorders of plasma-protein metabolism, not elsewhere classified; N40.0 Benign prostatic hyperplasia without lower urinary tract symptoms; Z66 Do not resuscitate; E83.39 Other disorders of phosphorus metabolism; D64.9 Anemia, unspecified; L89.896 Pressure-induced deep tissue damage of other site; L89.620 Pressure ulcer of left heel, unstageable; M62.562 Muscle wasting and atrophy, not elsewhere classified, left lower leg; M62.561 Muscle wasting and atrophy, not elsewhere classified, right lower leg; Z91.14 Patient's other noncompliance with medication regimen; S81.802A Unspecified open wound, left lower leg, initial encounter; X58.XXXA Exposure to other specified factors, initial encounter; Y92.9 Unspecified place or not applicable; B95.2 Enterococcus as the cause of diseases classified elsewhere
CPT/HCPCS: 36415; 70450-TC; 71045-TC; 80048-TC; 80053-TC; 80061-TC; 80076-TC; 81001; 83605-TC; 83735-TC; 83880; 84100-TC; 84439-TC; 84443-TC; 84484-TC; 85025-TC; 85730-TC; 87040-TC; 87081-TC; 87086-TC; 87186-TC; 93307-TC; A6253; A6403; C9803; G0378; J0456; J0696; J0713; J1644; J2185; J3370; J3475; J3490; J7030; J7050; J7060; J7120